=== PATIENT | female | born 1990 | race Caucasian/White ===

== ENCOUNTER 2021-11-11 03:45 | Inpatient (IN) | payer OTHER ==
[~2021-11-11] VITALS: Ht 162.6 cm; Wt 1.8 kg
[2021-11-11] MEDS ORDERED: PROZAC10 MG (04:47)
[2021-11-11] MEDS ORDERED: PRENATAL + DHA1 EAC1 (04:47)
== END 2021-11-14 14:09 | disposition home or self-care (01) | DRG 786 ==
LOC: O/R 03:45 → LDR 03:45 → O/R 08:44 → OB/GYN 10:43
PROVIDERS: ADMIT Obstetrics & Gynecology; ATTEND Obstetrics & Gynecology
PROC: 4A1HXCZ Monitoring of Products of Conception, Cardiac Rate, External Approach (ICD-10-PCS; 2021-11-11)
PROC: 10D00Z1 Extraction of Products of Conception, Low, Open Approach (ICD-10-PCS; principal; 2021-11-11 05:00)
DX: O45.8X3 Other premature separation of placenta, third trimester (principal); O60.14X0 Preterm labor third trimester with preterm delivery third trimester, not applicable or unspecified; Z3A.32 32 weeks gestation of pregnancy; Z37.0 Single live birth; Z20.822 Contact with and (suspected) exposure to COVID-19